=== PATIENT | male | born 1985 ===

== ENCOUNTER 2021-08-25 08:45 | Outpatient (CLI) | payer OTHER ==
[2021-08-25 12:48] LABS: Alanine Aminotransferase 28 units/L (7-56); Albumin 4.6 g/dL (3.9-5); BUN/Creatinine Ratio 13; Blood Urea Nitrogen 13 mg/dL (9-20); Calcium 9.9 mg/dL (8.4-10.2); Chol/HDL Ratio 5.54 %; HDL Cholesterol 33 mg/dL (40-59); Hemolysis Index 15; LDL Cholesterol,Direct 109 mg/dL (50-130)
[2021-08-25 12:56] LABS: Hematocrit 46.1 % (35.5-45.6); Hemoglobin 15.2 gm/dl (11.8-15.2); Mean Corpuscular HGB Conc 33 % (32-34); Mean Corpuscular Volume 91 fl (84-94); Platelet Count 216 K/mm3 (140-440); Red Blood Count 5.08 M/mm3 (3.65-5.03); Red Cell Distribution Width 13.1 % (13.2-15.2)
[2021-08-25 13:52] LABS: Basophils % (Manual) 0 % (0.0-1.8); Total Cells Counted 100
[2021-08-25 13:53] LABS: Platelet Estimate Consistent w Auto; RBC Morphology Normal
== END 2021-08-25 08:46 | disposition home or self-care (01) ==
LOC: LABHHL 08:45
PROVIDERS: ATTEND Internal Medicine
DX: Z00.00 Encounter for general adult medical examination without abnormal findings (principal); D72.819 Decreased white blood cell count, unspecified; K21.9 Gastro-esophageal reflux disease without esophagitis; R53.83 Other fatigue; E55.9 Vitamin D deficiency, unspecified
CPT/HCPCS: 36415; 80053; 80061; 82306; 84443; 85007; 85025